=== PATIENT | female | born 2000 | race Caucasian/White ===

== ENCOUNTER 2023-12-29 13:09 | Outpatient (CLI) | payer OTHER ==
[2023-12-29 14:42] VITALS: BMI 46.3
== END 2023-12-29 13:10 | disposition home or self-care (01) ==
LOC: CSHLAB 13:09
PROVIDERS: ATTEND Family Medicine
DX: Z01.812 Encounter for preprocedural laboratory examination (principal)
CPT/HCPCS: 86900; 86901

== ENCOUNTER 2024-01-01 07:10 | Inpatient (IN) | payer OTHER ==
[2024-01-01] MEDS ORDERED: hydrALAZINE 20 MG/ML VIAL SLOW IVP PRN ×3 (07:35→12:15)
[2024-01-01] MEDS ORDERED: Bicitra 30 ML UDCUP PO PRN (07:36)
[2024-01-01] MEDS ORDERED: Misoprostol 200 MCG TAB PR PRN (07:36)
[2024-01-01] MEDS ORDERED: Diphenoxylate HCl/Atropine Tablet PO PRN (07:36)
[2024-01-01] MEDS ORDERED: Ondansetron PF 4 MG/2 ML Vial IVP PRN ×4 (07:36→12:15)
[2024-01-01] MEDS ORDERED: Methylergonovine 0.2 MG/ML VIAL IM PRN (07:36)
[2024-01-01] MEDS ORDERED: Promethazine HCl 25 MG/ML VIAL IM PRN ×3 (07:36→12:15)
[2024-01-01] MEDS ORDERED: Tranexamic Acid 1,000 MG/10 ML VIAL IVP PRN (07:36)
[2024-01-01] MEDS ORDERED: Carboprost 250 MCG/ML AMP IM PRN (07:36)
[2024-01-01] MEDS ORDERED: Acetaminophen 500 MG TAB PO PRN (07:36)
[2024-01-01] MEDS ORDERED: Oxytocin 30 units/NS 500 ML 500 ML IV SCH (07:45)
[2024-01-01] MEDS ORDERED: Lactated Ringer's 1,000 ML IV SCH (07:45)
[2024-01-01 08:08] LABS: Hematocrit 37.3 % (34.9-44.5); Hemoglobin 12.6 g/dL (12.0-15.5); Mean Corpuscular HGB CONC 33.8 g/dL (32.0-36.0); Mean Corpuscular Hemoglobin 27.4 pg (27.0-33.0); Mean Corpuscular Volume 81.1 fL (81.6-98.3); Mean Platelet Volume 8.6 fL (7.4-10.4); Platelet Count 273 10x3/uL (150-450); RBC Distribution Width 15.3 % (11.5-14.5); White Blood Cell (WBC) Count 11.6 10x3/uL (3.5-10.5)
[2024-01-01] MEDS: CEFAZOLIN 2 GM in Sodium Chloride 0.9% 100 ML IVPB SCH (08:14)
[2024-01-01] MEDS: Famotidine/PF 20 mg/2ml Vial SLOW IVP PRN (08:14)
[2024-01-01 08:41] LABS: HBsAg Index 0.16 S/CO (0-0.99); Hep B Surf Ag - L&D Non-Reactive S/CO (NonReactive)
[2024-01-01 08:42] LABS: Syphilis Antibody Nonreactive (Nonreactive); Syphilis Antibody Index 0.06 S/CO (<1.00 Non-Reactive)
[2024-01-01] MEDS ORDERED: Naloxone HCl 0.4 mg/ml Vial IV PRN (09:37)
[2024-01-01] MEDS ORDERED: HYDROmorphone 0.5 MG/0.5 ML SYRINGE SLOW IVP PRN (09:37)
[2024-01-01] MEDS ORDERED: Naloxone HCl 0.4 mg/ml Vial IVP PRN ×2 (09:37)
[2024-01-01] MEDS ORDERED: Meperidine HCl/PF 25 MG (1 mL) VIAL SLOW IVP PRN (09:37)
[2024-01-01] MEDS ORDERED: fentaNYL 50 mcg/mL 1 mL Vial SLOW IVP PRN (09:37)
[2024-01-01] MEDS ORDERED: diphenhydrAMINE 50 MG/ML VIAL IVP PRN (09:37)
[2024-01-01] MEDS ORDERED: Communication Order-Pharmacy FS SCH (09:45)
[2024-01-01] MEDS ORDERED: Lanolin Ointment 7 GM TUBE TOP PRN (12:15)
[2024-01-01] MEDS ORDERED: Bisacodyl 10 MG SUPP PR PRN (12:15)
[2024-01-01] MEDS: HYDROmorphone 0.5 MG/0.5 ML SYRINGE SLOW IVP SCH (15:00)
[2024-01-01] MEDS: Morphine PF 10 MG/10 ML VIAL ONE (19:01)
[2024-01-01] MEDS: Azithromycin 500 MG VIAL ONE (19:01)
[2024-01-01] MEDS: Ondansetron PF 4 MG/2 ML Vial ONE (19:02)
[2024-01-01] MEDS: ePHEDrine Sulfate 50 MG/10 ML VIAL ONE (19:02)
[2024-01-01] MEDS: PHENYLEPHRINE-NS 100 MCG/ML 10 ML SYRINGE ONE (19:02)
[2024-01-01] MEDS: Boostrix 0.5 ML (Tdap) VIAL (>/=7 yrs of age) IM ONE (19:02)
[2024-01-01] MEDS: Oxytocin 10 UNITS/ML VIAL ONE ×2 (19:02)
[2024-01-01] MEDS: Docusate 100 MG CAP PO SCH (21:17)
[2024-01-01] MEDS: HYDROcodone/Acetaminophen 5/325 mg Tablet PO PRN (21:19)
[2024-01-01] MEDS: Ferrous Sulfate 325 MG TAB PO SCH (21:22)
[2024-01-01] MEDS ORDERED: HYDROcodone/Acetaminophen 5/325 mg Tablet PO PRN (22:00)
[2024-01-02 03:17] LABS: Hematocrit 32.1 % (34.9-44.5); Hemoglobin 11.4 g/dL (12.0-15.5); Mean Corpuscular HGB CONC 35.5 g/dL (32.0-36.0); Mean Corpuscular Hemoglobin 28.9 pg (27.0-33.0); Mean Corpuscular Volume 81.5 fL (81.6-98.3); Mean Platelet Volume 8.8 fL (7.4-10.4); Platelet Count 210 10x3/uL (150-450); RBC Distribution Width 15.1 % (11.5-14.5); Red Blood Cell (RBC) Count 3.94 10x6/uL (3.90-5.03); White Blood Cell (WBC) Count 16.5 10x3/uL (3.5-10.5)
[2024-01-02] MEDS: Moisturizing Cream (Eucerin) 113 GM JAR TOP PRN (08:17)
[2024-01-02] MEDS: Simethicone Chewable 80 MG TAB PO PRN (08:17)
[2024-01-02] MEDS: diphenhydrAMINE 25 MG CAP PO PRN (09:37)
[2024-01-02] MEDS: Prenatal Vitamin 1 TAB PO SCH (09:37)
[2024-01-04 08:00] VITALS: BP 111/55; TEMP 97.9
== END 2024-01-04 15:40 | disposition home or self-care (01) | DRG 787 ==
LOC: CSHLD/OP 07:10 → CSHLD 08:08 → CSHPP 11:40
PROVIDERS: ADMIT Family Medicine; ATTEND Family Medicine
PROC: 10D00Z1 Extraction of Products of Conception, Low, Open Approach (ICD-10-PCS; principal; 2024-01-01)
DX: O42.02 Full-term premature rupture of membranes, onset of labor within 24 hours of rupture (principal); Q61.3 Polycystic kidney, unspecified; O99.892 Other specified diseases and conditions complicating childbirth; O30.043 Twin pregnancy, dichorionic/diamniotic, third trimester; Z3A.37 37 weeks gestation of pregnancy; Z37.2 Twins, both liveborn; Z88.8 Allergy status to other drugs, medicaments and biological substances; O75.82 Onset (spontaneous) of labor after 37 completed weeks of gestation but before 39 completed weeks gestation, with delivery by (planned) cesarean section; O34.211 Maternal care for low transverse scar from previous cesarean delivery
CPT/HCPCS: 36415; 51702; 85027; 86780; 86850; 86900; 86901; 87340; 88307; 99285; C1889; J1170; J2274; J2405; J2590; J3490; S0028